=== PATIENT | female | born 1950 | race Caucasian/White ===

== ENCOUNTER 2018-12-28 09:30 | Emergency (ER) | payer BC, MEDICARE ==
--- NOTE | 2018-12-28 11:11 | EDM.PDOC ---
ED HPI GENERAL MEDICAL PROBLEM - General Chief Complaint: Bite:Animal, Insect Stated Complaint: TICK BITE FEVER CHILLS Time Seen by Provider: 12/28/18 10:00 Source of Information: Reports: Patient History Limitations: Reports: No Limitations - History of Present Illness INITIAL COMMENTS - FREE TEXT/NARRATIVE: Healthy 68 yo presents with concerns of possible lyme infection Pulled deer tick off back about 7 days ago. Did note surrounding erythema that has since resolved. Yesterday began having fever, headache, fatigue. Didn't take fever at home. No cough, N/A, diarrhea or abdominal pain. No prior hx of lyme Generalized Pain Score (Numeric/FACES): 7 - Related Data Allergies Allergy/AdvReac Type Severity Reaction Status Date / Time No Known Allergies Allergy Verified 10/21/17 06:53 Home Meds: Home Meds Donepezil HCl [Aricept] 5 mg PO BEDTIME 10/21/17 [History] Melatonin [Melatin] 3 mg PO BEDTIME 10/21/17 [History] Doxycycline [Vibramycin] 100 mg PO BID 21 Days cap 12/28/18 [Rx] Past Medical History - Past Health History Medical/Surgical History: Denies Medical/Surgical History - Infectious Disease History Infectious Disease History: Reports: Chicken Pox Social & Family History - Tobacco Use Smoking Status *Q: Never Smoker - Caffeine Use Caffeine Use: Reports: Coffee, Tea - Alcohol Use Days Per Week of Alcohol Use: 7 Number of Drinks Per Day: 1 Total Drinks Per Week: 7 - Recreational Drug Use Recreational Drug Use: No ED ROS GENERAL - Review of Systems Review Of Systems: See Below Constitutional: Reports: Fever, Chills, Malaise HEENT: Reports: No Symptoms Respiratory: Denies: Shortness of Breath, Cough Cardiovascular: Denies: Chest Pain Endocrine: Reports: No Symptoms GI/Abdominal: Reports: No Symptoms. Denies: Abdominal Pain Musculoskeletal: Reports: No Symptoms Neurological: Reports: Headache Psychiatric: Reports: No Symptoms Hematologic/Lymphatic: Reports: No Symptoms ED EXAM, ANIMAL BITE - Physical Exam Exam: See Below Exam Limited By: No Limitations General Appearance: Alert, No Apparent Distress Ears: Normal External Exam Nose: Normal Inspection Throat/Mouth: Normal Inspection Head: Atraumatic, Normocephalic Neck: Full Range of Motion Respiratory/Chest: No Respiratory Distress, Lungs Clear, Normal Breath Sounds Cardiovascular: Regular Rate, Rhythm GI/Abdominal: Soft, Non-Tender Back Exam: Normal Inspection Extremities: Normal Inspection Neurological: Alert, Oriented, CN II-XII Intact, No Motor/Sensory Deficits Psychiatric: Normal Affect, Normal Mood Skin Exam: Warm/Dry Course - Vital Signs Last Recorded V/S: Last Vital Signs Temp 39.4 C H 12/28/18 09:58 Pulse 84 12/28/18 09:58 Resp 16 12/28/18 09:58 BP 132/92 H 12/28/18 09:58 Pulse Ox 96 12/28/18 09:58 - Orders/Labs/Meds Orders: Active Orders 24 hr Category Date Time Status LYME, TOTAL AB TEST/REFLEX Stat Lab 12/28/18 10:28 Received Labs: Laboratory Tests 12/28/18 12/28/18 Range/Units 10:15 10:28 WBC 4.0 L (4.5-11.0) K/uL RBC 4.74 (3.30-5.50) M/uL Hgb 14.6 (12.0-15.0) g/dL Hct 43.8 (36.0-48.0) % MCV 92 (80-98) fL MCH 31 (27-31) pg MCHC 33 (32-36) % Plt Count 210 (150-400) K/uL Sodium 132 L (140-148) mmol/L Potassium 3.8 (3.6-5.2) mmol/L Chloride 95 L (100-108) mmol/L Carbon Dioxide 27 (21-32) mmol/L Anion Gap 13.8 (5.0-14.0) mmol/L BUN 14 (7-18) mg/dL Creatinine 0.8 (0.6-1.0) mg/dL Est Cr Clr Drug Dosing 56.45 mL/min Estimated GFR (MDRD) > 60 (>60) Glucose 112 H (74-106) mg/dL Calcium 9.3 (8.5-10.1) mg/dL Total Bilirubin 0.6 (0.2-1.0) mg/dL AST 36 (15-37) U/L ALT 32 (12-78) U/L Alkaline Phosphatase 89 (46-116) U/L Total Protein 8.4 H (6.4-8.2) g/dL Albumin 4.3 (3.4-5.0) g/dL Globulin 4.1 H (2.3-3.5) g/dL Albumin/Globulin Ratio 1.1 L (1.2-2.2) - Re-Assessments/Exams Free Text/Narrative Re-Assessment/Exam: 68 yo presents with concerns of fever, fatigue, headache in setting of recent deer tick bite and rash concerning for erythema migrans Labs non-contributory Alternatively could represent viral illness, but history concerning for lyme so will start doxycycline. Low concern for occult bacterial infection. Lyme serology sent. Discussed return precaution, symptomatic cares Discharged 12/28/18 11:34 Departure - Departure Time of Disposition: 11:10 Disposition: Home, Self-Care 01 Clinical Impression: Tick bite Qualifiers: Encounter type: initial encounter Qualified Code(s): W57.XXXA - Bitten or stung by nonvenomous insect and other nonvenomous arthropods, initial encounter - Discharge Information Prescriptions: Doxycycline [Vibramycin] 100 mg PO BID 21 Days cap Instructions: Tick Bite Information, Adult, [id number] Referrals: PCP,None [Primary Care Provider] - Forms: ED Department Discharge Additional Instructions: Please take the prescribed antibiotics, there should be extra pills to have on hand for future tick bites as discussed. We will call for positive flu test Follow up with your primary doctor as needed - My Orders Last 24 Hours: My Active Orders 12/28/18 10:28 LYME, TOTAL AB TEST/REFLEX Stat - Assessment/Plan Last 24 Hours: My Active Orders 12/28/18 10:28 LYME, TOTAL AB TEST/REFLEX Stat
[2018-12-31 11:09] LABS: LYME IGG/IGM AB <0.91 ISR (0.00-0.90)
== END 2018-12-28 11:23 | disposition home or self-care (01) ==
LOC: JP.ED 09:30
DX: S20.469A Insect bite (nonvenomous) of unspecified back wall of thorax, initial encounter (principal); W57.XXXA Bitten or stung by nonvenomous insect and other nonvenomous arthropods, initial encounter
CPT/HCPCS: 36415; 80053; 85027; 86618; 87804; 87804-59; 99283; 99284

== ENCOUNTER 2019-09-14 11:47 | Emergency (ER) | payer MEDICARE ==
--- NOTE | 2019-09-14 13:25 | CT ---
Head wo Cont CLINICAL HISTORY: TIA COMPARISON: MR brain 2018 TECHNIQUE: Transverse scans were obtained from the base of the skull through the vertex without IV contrast on a multislice, multidetector CT scanner. Auto dosage reduction and iterative reconstruction techniques employed. FINDINGS: There is a rounded 8 mm density. There is no mass effect, hemorrhage, or extraaxial collection. There are some mild scattered periventricular and subcortical lucency The basal cisterns and sulci over the convexities are prominent. The ventricles are normal for age. IMPRESSION: Left periventricular frontal low-attenuation focus measuring approximately 8 mm. This is poorly marginated. Small ischemic infarct is not excluded. If clinically relevant to noncontrast MR brain is a consideration
--- NOTE | 2019-09-14 13:36 | EDM.PDOC ---
ED HPI GENERAL MEDICAL PROBLEM - General Chief Complaint: Eye Problems Stated Complaint: WAVEY FEELING IN THE EYES Time Seen by Provider: 09/14/19 13:32 Source of Information: Reports: Patient - History of Present Illness INITIAL COMMENTS - FREE TEXT/NARRATIVE: 69 year old female presents to [place] [facility] for evaluation of visual disturbances which have been intermittent. CT Head and Visual Acuity order shortly after arrival due to concern regarding Stroke or TIA. Patient has had recurrent visual disturbances intermittently but increased frequency this week. Patient describes visual disturbance and waxes involving both eyes rainbow upper and lower visual field with clear central vision noted. Visual disturbance last 2-5 minutes with occurrence every few weeks to months except just happed a few days ago and today. Patient was sitting at the dining room table attempting to read when she noticed visual concerns which lasted a few minutes. Patient has noted pressure irregularities in different spots on her head which seem to be transient. Patient reports fairly significant memory concerns which have been noticed by family. Patient does not have a regular PCP in the [facility] but live in [facility]. Patient was told that she had electrolyte abnormality recently but does not recall what maybe magnesium. Patient is ok with work-up today and discussed referral for TIA,Stroke vs Neurology consultation today or in the near future. 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 ED EXAM GENERAL W FULL EYE - Physical Exam Exam: See Below Exam Limited By: No Limitations General Appearance: Alert, WD/WN, No Apparent Distress Eye Exam: Bilateral Eye: EOMI, Normal Inspection Visual Acuity (R) 20/: 30 Visual Acuity (L) 20/: 25 With Correction: Yes Eyelids: Bilateral: Normal Appearance Conjunctiva & Sclera: Bilateral: Normal Appearance Extraocular Movements: Bilateral: Intact Ears: Normal External Exam, Hearing Grossly Normal Nose: Normal Inspection Throat/Mouth: Normal Inspection, Normal Voice, No Airway Compromise Neck: Normal Inspection, Supple, Non-Tender, Full Range of Motion Neurological: Alert, Oriented, CN II-XII Intact, Normal Cognition, Normal Gait, Normal Reflexes, No Motor/Sensory Deficits Psychiatric: Normal Affect, Normal Mood Skin Exam: Warm, Dry, Intact, Normal Color, No Rash EKG INTERPRETATION EKG Date: 09/14/19 Time: 14:02 Rhythm: NSR Rate (Beats/Min): 62 [place]: Normal P-Wave: Variable (biphasic V1-V3 with enlarged wave on LEAD II, III and aVF) QRS: Normal ST-T: Other (non-specific change (flipped T in V1)) QT: Normal ED EYE w/ Add Procedure - Additional/Other Procedure(s) Other (Free Text) Procedure(s) [Text1]: Visual Acuity: Rt 20/30 Left 20/25 with correction Course - Vital Signs Last Recorded V/S: Last Vital Signs Temp 36.4 C 09/14/19 13:25 Pulse 67 09/14/19 15:54 Resp 16 09/14/19 15:54 BP 129/79 09/14/19 15:54 Pulse Ox 98 09/14/19 15:54 - Orders/Labs/Meds Orders: Active Orders 24 hr Category Date Time Status Assess Neurological Status [RC] CONTINUOUS Care 09/14/19 13:53 Active EKG Documentation Completion [RC] ASDIRECTED Care 09/14/19 13:54 Active NIH Stroke Scale [RC] Q15M Care 09/14/19 13:53 Active Nursing Bedside Swallow Screen [RC] STAT Care 09/14/19 13:53 Active Oxygen Therapy, ED [RC] ASDIRECTED Care 09/14/19 13:53 Active Peripheral IV Care [RC] . DIRECTED Care 09/14/19 13:53 Active Peripheral IV Care [RC] . DIRECTED Care 09/14/19 13:54 Active Visual Acuity [Vision Test] [RC] ASDIRECTED Care 09/14/19 12:19 Active Vital Signs [RC] Q15M Care 09/14/19 13:53 Active Ang Neck [CT] Stat Exams 09/14/19 15:55 Taken Iopamidol [Isovue-370 (76%)] Med 09/14/19 16:15 Active 100 ml IV . DIRECTED Sodium Chloride 0.9% [Normal Saline] 100 ml Med 09/14/19 16:15 Active IV ASDIRECTED Sodium Chloride 0.9% [Saline Flush] Med 09/14/19 13:53 Active 10 ml FLUSH ASDIRECTED PRN Sodium Chloride 0.9% [Saline Flush] Med 09/14/19 13:53 Active 10 ml FLUSH ASDIRECTED PRN Peripheral IV Insertion Adult [OM.PC] Stat Oth 09/14/19 13:53 Ordered Peripheral IV Insertion Adult [OM.PC] Urgent Oth 09/14/19 13:52 Ordered EKG 12 Lead [EK] Stat Ther 09/14/19 13:53 Ordered Medication Orders Sodium Chloride (Normal Saline) 100 mls @ 3 mls/sec IV ASDIRECTED GRIS Stop: 09/14/19 18:00 Last Admin: 09/14/19 16:34 Dose: 3 mls/sec Documented by: BLUE Iopamidol (Isovue-370 (76%)) 100 ml IV . DIRECTED GRIS Stop: 09/14/19 18:00 Last Admin: 09/14/19 16:33 Dose: 100 ml Documented by: BLUE Sodium Chloride (Saline Flush) 10 ml FLUSH ASDIRECTED PRN PRN Reason: Keep Vein Open Last Admin: 09/14/19 16:49 Dose: 10 ml Documented by: KARIE Sodium Chloride (Saline Flush) 10 ml FLUSH ASDIRECTED PRN PRN Reason: Keep Vein Open Last Admin: 09/14/19 16:50 Dose: 10 ml Documented by: KARIE Labs: Laboratory Tests 09/14/19 09/14/19 09/14/19 Range/Units 14:08 14:08 14:08 WBC (4.5-11.0) K/uL RBC (3.30-5.50) M/uL Hgb (12.0-15.0) g/dL Hct (36.0-48.0) % MCV (80-98) fL MCH (27-31) pg MCHC (32-36) % Plt Count (150-400) K/uL Neut % (Auto) (36-66) % Lymph % (Auto) (24-44) % [place] % (Auto) (2-6) % Eos % (Auto) (2-4) % Baso % (Auto) (0-1) % PT 10.6 (9.5-12.0) sec INR 0.98 (0.80-1.20) APTT 26.9 L (27.0-36.0) sec Sodium 139 L (140-148) mmol/L Potassium 4.4 (3.6-5.2) mmol/L Chloride 103 (100-108) mmol/L Carbon Dioxide 28 (21-32) mmol/L Anion Gap 12.4 (5.0-14.0) mmol/L BUN 8 (7-18) mg/dL Creatinine 0.7 (0.6-1.0) mg/dL Est Cr Clr Drug Dosing 60.84 mL/min Estimated GFR (MDRD) > 60 (>60) Glucose 97 (74-106) mg/dL Calcium 9.1 (8.5-10.1) mg/dL Magnesium 2.2 (1.8-2.4) mg/dL Total Bilirubin 0.4 (0.2-1.0) mg/dL AST 23 (15-37) U/L ALT 29 (12-78) U/L Alkaline Phosphatase 75 (46-116) U/L Creatine Kinase 126 (26-192) U/L Total Protein 7.6 (6.4-8.2) g/dL Albumin 4.1 (3.4-5.0) g/dL Globulin 3.5 (2.3-3.5) g/dL Albumin/Globulin Ratio 1.2 (1.2-2.2) / Range/Units 16:29 WBC 6.2 (4.5-11.0) K/uL RBC 4.15 (3.30-5.50) M/uL Hgb 12.8 (12.0-15.0) g/dL Hct 39.5 (36.0-48.0) % MCV 95 (80-98) fL MCH 31 (27-31) pg MCHC 32 (32-36) % Plt Count 292 (150-400) K/uL Neut % (Auto) 55 (36-66) % Lymph % (Auto) 36 (24-44) % [place] % (Auto) 7 H (2-6) % Eos % (Auto) 1 L (2-4) % Baso % (Auto) 1 (0-1) % PT (9.5-12.0) sec INR (0.80-1.20) APTT (27.0-36.0) sec Sodium (140-148) mmol/L Potassium (3.6-5.2) mmol/L Chloride (100-108) mmol/L Carbon Dioxide (21-32) mmol/L Anion Gap (5.0-14.0) mmol/L BUN (7-18) mg/dL Creatinine (0.6-1.0) mg/dL Est Cr Clr Drug Dosing mL/min Estimated GFR (MDRD) (>60) Glucose (74-106) mg/dL Calcium (8.5-10.1) mg/dL Magnesium (1.8-2.4) mg/dL Total Bilirubin (0.2-1.0) mg/dL AST (15-37) U/L ALT (12-78) U/L Alkaline Phosphatase (46-116) U/L Creatine Kinase (26-192) U/L Total Protein (6.4-8.2) g/dL Albumin (3.4-5.0) g/dL Globulin (2.3-3.5) g/dL Albumin/Globulin Ratio (1.2-2.2) Meds: Medications Generic Name Dose Route Start Last Admin Trade Name Freq PRN Reason Stop Dose Admin Sodium Chloride 100 mls @ 3 mls/sec 09/14/19 16:15 09/14/19 16:34 Normal Saline IV 09/14/19 18:00 3 mls/sec ASDIRECTED GRIS Administration Iopamidol 100 ml 09/14/19 16:15 09/14/19 16:33 Isovue-370 (76%) IV 09/14/19 18:00 100 ml . DIRECTED GRIS Administration Sodium Chloride 10 ml 09/14/19 13:53 09/14/19 16:49 Saline Flush FLUSH 10 ml ASDIRECTED PRN Administration Keep Vein Open Sodium Chloride 10 ml 09/14/19 13:53 09/14/19 16:50 Saline Flush FLUSH 10 ml ASDIRECTED PRN Administration Keep Vein Open Discontinued Medications Generic Name Dose Route Start Last Admin Trade Name Abigail PRN Reason Stop Dose Admin Aspirin 324 mg 09/14/19 13:53 09/14/19 14:28 Aspirin PO 09/14/19 13:54 324 mg ONETIME ONE Administration Sodium Chloride 10 ml 09/14/19 16:02 09/14/19 16:34 Saline Flush FLUSH 09/14/19 16:03 10 ml ONETIME ONE Administration - Radiology Interpretation Free Text/Narrative:: Preliminary Radiology report available at 17:31 CTA Head: No large lessel occlusion. Major intracranial arteries are patent. CTA Neck: No significant stenosis of the major cervical arteries. No evidence of cervical arterial dissection. - Re-Assessments/Exams Free Text/Narrative Re-Assessment/Exam: Radiology Report regarding CT Head reviewed and discussed with ER MD regarding MRI availability and TIA/Stroke referral center. Orders for further work-up placed. Discussed results with patient: Left periventricular frontal low- attenuation focus measuring approximately 8mm. This is poorly marginated. Small Ischemic Infarct is not excluded. Patient consents to proceed with further evaluation including blood work, MRI/MRA, EKG and Aspirin dosing. 09/14/19 13:50 MRI not available at this time. Patient updated regarding EKG and blood test results which appear normal. [facility] regarding outpatient TIA work-up. Stroke Neurologist, Dr Spears recommended CTA Head and Neck today before safe to discharge today. We will work out outpatient evaluation with Cardiac Echo/Carotid US and General Neurology evaluation later this week. 09/14/19 15:56 Called [facility] Source to update Dr Spears regarding CTA Head and Neck results. 09/14/19 17:37 Departure - Departure Time of Disposition: 17:59 Disposition: Home, Self-Care 01 Clinical Impression: Visual disturbance, TIA (transient ischemic attack) - Discharge Information Referrals: PCP,None [Primary Care Provider] - Forms: ED Department Discharge Additional Instructions: 1. Start Aspirin 325mg daily for possible TIA visual concerns. 2. Follow-up at [facility] with Stroke Interventionalist for further work- up for TIA. 3. Stroke Neurologist recommends consultation with General Neurologist with possible MRI for further neurologic work-up. 4. Call [facility] at 8 am to ensure complete referral to [facility] Stroke clinic this week and General Neurologist with possible outpatient MRI. 5. We will follow-up with clinic tomorrow to ensure you are contacted. Please call ER [phone] if you have not received a phone call from [facility] by noon tomorrow. Sepsis Event Note (ED) - Evaluation Sepsis Screening Result: No Definite Risk - Focused Exam Vital Signs: Vital Signs Temp Pulse Resp BP Pulse Ox 09/14/19 15:54 67 16 129/79 98 09/14/19 14:31 57 L 18 152/87 H 98 09/14/19 13:25 36.4 C 55 L 16 146/83 H 94 L 09/14/19 12:57 36.4 C 55 L 16 146/83 H 97 - My Orders Last 24 Hours: My Active Orders 09/14/19 12:19 Visual Acuity [Vision Test] [RC] ASDIRECTED 09/14/19 13:52 Peripheral IV Insertion Adult [OM.PC] Urgent 09/14/19 13:53 Assess Neurological Status [RC] CONTINUOUS NIH Stroke Scale [RC] Q15M Nursing Bedside Swallow Screen [RC] STAT Oxygen Therapy, ED [RC] ASDIRECTED Peripheral IV Care [RC] . DIRECTED Vital Signs [RC] Q15M Sodium Chloride 0.9% [Saline Flush] 10 ml FLUSH ASDIRECTED PRN Sodium Chloride 0.9% [Saline Flush] 10 ml FLUSH ASDIRECTED PRN Peripheral IV Insertion Adult [OM.PC] Stat EKG 12 Lead [EK] Stat 09/14/19 13:54 EKG Documentation Completion [RC] ASDIRECTED Peripheral IV Care [RC] . DIRECTED 09/14/19 15:55 Ang Neck [CT] Stat 09/14/19 16:15 Iopamidol [Isovue-370 (76%)] 100 ml IV . DIRECTED Sodium Chloride 0.9% [Normal Saline] 100 ml IV ASDIRECTED - Assessment/Plan Last 24 Hours: My Active Orders 09/14/19 12:19 Visual Acuity [Vision Test] [RC] ASDIRECTED 09/14/19 13:52 Peripheral IV Insertion Adult [OM.PC] Urgent 09/14/19 13:53 Assess Neurological Status [RC] CONTINUOUS NIH Stroke Scale [RC] Q15M Nursing Bedside Swallow Screen [RC] STAT Oxygen Therapy, ED [RC] ASDIRECTED Peripheral IV Care [RC] . DIRECTED Vital Signs [RC] Q15M Sodium Chloride 0.9% [Saline Flush] 10 ml FLUSH ASDIRECTED PRN Sodium Chloride 0.9% [Saline Flush] 10 ml FLUSH ASDIRECTED PRN Peripheral IV Insertion Adult [OM.PC] Stat EKG 12 Lead [EK] Stat 09/14/19 13:54 EKG Documentation Completion [RC] ASDIRECTED Peripheral IV Care [RC] . DIRECTED 09/14/19 15:55 Ang Neck [CT] Stat 09/14/19 16:15 Iopamidol [Isovue-370 (76%)] 100 ml IV . DIRECTED Sodium Chloride 0.9% [Normal Saline] 100 ml IV ASDIRECTED
[2019-09-14] MEDS ORDERED: Sodium Chloride 0.9% 10 ML Syringe FLUSH PRN ×2 (13:53)
[2019-09-14] MEDS ORDERED: Aspirin 81 MG Tab.Chew PO ONE (13:53)
[2019-09-14] MEDS ORDERED: Sodium Chloride 0.9% 10 ML Syringe FLUSH ONE (16:02)
[2019-09-14] MEDS ORDERED: Sodium Chloride 0.9% 100 ML IV SCH (16:15)
[2019-09-14] MEDS ORDERED: Iopamidol 755 Mg/ML 100 ML Bottle IV SCH (16:15)
--- NOTE | 2019-09-14 17:32 | CRLCT ---
INDICATION: Transient ischemic attack. TECHNIQUE: After standard noncontrast head CT, high resolution axial CT images acquired through the head and neck following rapid intravenous administration of iodinated contrast. Multiplanar MIPS of cranial and cervical vasculature performed. FINDINGS: Noncontrast head CT: There is no intracranial hemorrhage or fluid collection. The lane-white matter differentiation is maintained. There are subtle nonspecific white matter hypodensities commonly seen with cerebral small vessel disease. The ventricles are of normal morphology. The basal cisterns are clear. CTA head: There is normal filling of the intracranial vasculature; i.e. there is no large vessel occlusion or significant intracranial stenosis. There is no cerebral aneurysm or evidence for vascular malformation. CTA neck: There is no significant carotid or vertebral artery stenosis or dissection. The soft tissues of the neck are within normal limits. The cervical spine is in normal alignment. Degenerative changes are noted in the cervical spine. The lung apices are clear. IMPRESSION: No acute intracranial abnormality at CT/CTA. No significant carotid or vertebral artery stenosis or dissection. Ricky Cisse MD Neurointerventional Radiologist [employer] Please note that all CT scans at this facility use dose modulation, iterative reconstruction, and/or weight-based dosing when appropriate to reduce radiation dose to as low as reasonably achievable. Dictated by Ricky Cisse MD @ Sep 15 2019 9:23AM Signed by Dr. Ricky Cisse @ Sep 15 2019 9:23AM
--- NOTE | 2019-09-15 11:48 | CRLCT ---
Final Report: INDICATION: Transient ischemic attack. TECHNIQUE: After standard noncontrast head CT, high resolution axial CT images acquired through the head and neck following rapid intravenous administration of iodinated contrast. Multiplanar MIPS of cranial and cervical vasculature performed. FINDINGS: Noncontrast head CT: There is no intracranial hemorrhage or fluid collection. The lane-white matter differentiation is maintained. There are subtle nonspecific white matter hypodensities commonly seen with cerebral small vessel disease. The ventricles are of normal morphology. The basal cisterns are clear. CTA head: There is normal filling of the intracranial vasculature; i.e. there is no large vessel occlusion or significant intracranial stenosis. There is no cerebral aneurysm or evidence for vascular malformation. CTA neck: There is no significant carotid or vertebral artery stenosis or dissection. The soft tissues of the neck are within normal limits. The cervical spine is in normal alignment. Degenerative changes are noted in the cervical spine. The lung apices are clear. IMPRESSION: No acute intracranial abnormality at CT/CTA. No significant carotid or vertebral artery stenosis or dissection. Ricky Cisse MD Neurointerventional Radiologist [employer] Please note that all CT scans at this facility use dose modulation, iterative reconstruction, and/or weight-based dosing when appropriate to reduce radiation dose to as low as reasonably achievable. Dictated by Ricky Cisse MD @ Sep 15 2019 9:23AM Signed by: Ricky Cisse MD @09/15/2019 9:23:16 AM (Electronic Signature) [email or web address]
== END 2019-09-14 18:10 | disposition home or self-care (01) ==
LOC: JP.ED 11:47
DX: G45.9 Transient cerebral ischemic attack, unspecified (principal); M19.90 Unspecified osteoarthritis, unspecified site
CPT/HCPCS: 36415; 70450; 70496; 70498; 80053; 82550; 83735; 85025; 85610; 85730; 93005; 93010; 99284; A9270; J7050; Q9967

== ENCOUNTER 2021-03-30 11:21 | Emergency (ER) | payer MEDICARE ==
--- NOTE | 2021-03-30 11:59 | EDM.PDOC ---
ED HPI GENERAL MEDICAL PROBLEM - General Chief Complaint: Neurological Problem Stated Complaint: DIZZINESS,CONFUSED,SLURRED SPEECH Time Seen by Provider: 03/30/21 11:25 Source of Information: Reports: Patient, Family History Limitations: Reports: No Limitations - History of Present Illness INITIAL COMMENTS - FREE TEXT/NARRATIVE: 70-year-old female who has been having some issues with memory loss, mild intermittent confusion who developed a fairly sudden onset of confusion and expressive aphasia this morning causing her to be concerned. She also had some significant dizziness. He brought her in to be seen because she was very anxious, she has no physical deficits, is walking normally and has no weakness. No chest pain, shortness of breath, palpitations, nausea or vomiting, visual defects or other complaints. She seems anxious. Onset: Sudden Duration: Minutes: (Onset 30 to 40 minutes ago) Improves with: Reports: Other (Seems to be improving with some mild reassurance) Associated Symptoms: Reports: Confusion, Other (Dizziness) - Related Data Allergies Allergy/AdvReac Type Severity Reaction Status Date / Time No Known Allergies Allergy Verified 03/30/21 11:35 Home Meds: Home Meds Ascorbic Acid [Vitamin C] 500 mg PO DAILY 09/14/19 [History] Cyanocobalamin (Vitamin B-12) [Vitamin B-12] 1,000 mcg PO DAILY 09/14/19 [History] Multivitamin [Multivitamins] 1 each PO DAILY 09/14/19 [History] Past Medical History - Past Health History Medical/Surgical History: Denies Medical/Surgical History Other Cardiovascular History: rheumatic fever as a child. palpitations Respiratory History: Reports: None Gastrointestinal History: Reports: GERD Genitourinary History: Reports: None [employer] History: Reports: Other [employer] History: abortions x2 Musculoskeletal History: Reports: Arthritis Other Musculoskeletal History: arthritis right index finger Neurological History: Reports: Other (See Below) Other Neuro History: visual migraines Psychiatric History: Reports: None Endocrine/Metabolic History: Reports: None Hematologic History: Reports: None Immunologic History: Reports: None Oncologic (Cancer) History: Reports: None Dermatologic History: Reports: None - Infectious Disease History Infectious Disease History: Reports: Chicken Pox, Rheumatic Fever - Past Surgical History HEENT Surgical History: Reports: Oral Surgery, Tonsillectomy Social & Family History - Caffeine Use Caffeine Use: Reports: Coffee ED ROS GENERAL - Review of Systems Review Of Systems: See Below Constitutional: Denies: Fever, Chills, Malaise HEENT: Denies: Vision Change Respiratory: Denies: Shortness of Breath Cardiovascular: Reports: Palpitations. Denies: Chest Pain GI/Abdominal: Denies: Abdominal Pain, Nausea, Vomiting Skin: Reports: No Symptoms Neurological: Reports: Dizziness, Trouble Speaking. Denies: Headache, Paresthesia Psychiatric: Reports: Anxiety ED EXAM, GENERAL - Physical Exam Exam: See Below Exam Limited By: No Limitations General Appearance: Alert, No Apparent Distress Eye Exam: Bilateral Eye: Normal Inspection Head: Atraumatic Neck: Supple, Non-Tender Respiratory/Chest: Lungs Clear Cardiovascular: Regular Rate, Rhythm GI/Abdominal: Soft, Non-Tender Neurological: Alert, Oriented, Other (Patient does display some mild confusion and is very anxious, mild dysarthria and expressive aphasia which seems to be waxing and waning) Psychiatric: Anxious Skin Exam: Warm, Dry Course - Vital Signs Last Recorded V/S: Last Vital Signs Temp 98.4 F 03/30/21 11:29 Pulse 72 03/30/21 12:30 Resp 16 03/30/21 11:29 BP 159/90 H 03/30/21 12:30 Pulse Ox 97 03/30/21 11:29 - Orders/Labs/Meds Labs: Laboratory Tests 03/30/21 03/30/21 03/30/21 Range/Units 11:43 11:43 11:43 WBC 6.8 (4.5-11.0) K/uL RBC 4.38 (3.30-5.50) M/uL Hgb 13.5 (12.0-15.0) g/dL Hct 39.5 (36.0-48.0) % MCV 90 (80-98) fL MCH 31 (27-31) pg MCHC 34 (32-36) % Plt Count 213 (150-400) K/uL Neut % (Auto) 42.8 (36-66) % Lymph % (Auto) 47.6 H (24-44) % Coal % (Auto) 7.7 H (2-6) % Eos % (Auto) 0.9 L (2-4) % Baso % (Auto) 0.7 (0-1) % Sodium 134 L (140-148) mmol/L Potassium 3.7 (3.6-5.2) mmol/L Chloride 100 (100-108) mmol/L Carbon Dioxide 25 (21-32) mmol/L Anion Gap 12.7 (5.0-14.0) mmol/L BUN 11 (7-18) mg/dL Creatinine 0.7 (0.6-1.0) mg/dL Est Cr Clr Drug Dosing 59.99 mL/min Estimated GFR (MDRD) > 60 (>60) Glucose 132 H (74-106) mg/dL Calcium 9.2 (8.5-10.1) mg/dL Total Bilirubin 0.3 (0.2-1.0) mg/dL AST 23 (15-37) U/L ALT 21 (12-78) U/L Alkaline Phosphatase 74 (46-116) U/L Troponin I High Sens 5.9 (<=60.3) pg/mL Total Protein 7.4 (6.4-8.2) g/dL Albumin 3.8 (3.4-5.0) g/dL Globulin 3.6 H (2.3-3.5) g/dL Albumin/Globulin Ratio 1.1 L (1.2-2.2) TSH, Ultra Sensitive 0.359 (0.358-3.740) uIU/mL - Re-Assessments/Exams Free Text/Narrative Re-Assessment/Exam: 03/30/21 11:49 This appears to be more anxiety related but a CT of the head without contrast was ordered, along with a CBC CMP and TSH. I reviewed her clinic records and she has developed some ongoing anxiety about palpitations and has had cardiac consultations. 03/30/21 12:44 After further discussion with the apparently she has also been to [place] for neurology consultation because of some visual issues and had a recent MRI of her head which was reassuring. The CT also looked negative other than a slight change of a chronic finding, CBC CMP and TSH were normal. Patient will be discharged with a diagnosis of intermittent dizziness, anxiety. 03/30/21 14:05 Patient was at her baseline when discharged, if symptoms recur and are persistent more evaluation of the subtle change in CT scan or comparing it to her recent MRI would be worthwhile. 03/31/21 11:05 Phone call to the patient today, 12 hours after being seen and according to the she was back to her baseline after she left the emergency room and has been doing fine. Departure - Departure Time of Disposition: 13:07 Disposition: Home, Self-Care 01 Clinical Impression: Dizziness - Discharge Information Instructions: Dizziness, [id number] Referrals: PCP,None [Primary Care Provider] - Forms: ED Department Discharge Care Plan Goals: Stay hydrated, activity as tolerated, and return anytime if you develop persistent symptoms that are concerning and you feel you need further evaluation. Sepsis Event Note (ED) - Evaluation Sepsis Screening Result: No Definite Risk
--- NOTE | 2021-03-30 13:12 | CT ---
Head wo Cont CLINICAL HISTORY: Confusion, mild dysarthria COMPARISON: 2019 TECHNIQUE: Transverse scans were obtained from the base of the skull through the vertex without IV contrast on a multislice, multidetector CT scanner. Auto dosage reduction and iterative reconstruction techniques employed. FINDINGS: There is focal ill-defined low-attenuation contiguous to the left frontal horn. This was seen on the August 2019 study. It is slightly larger and less well-defined. There is no mass effect, hemorrhage, or extraaxial collection. The basal cisterns and sulci over the convexities are mildly prominent. The ventricles are normal for age. IMPRESSION: Ill-defined hypodense area contiguous to the left frontal horn. It is slightly larger and less well-defined than in August 2019. This may represent an area of the acute ischemic infarct. This could represent some chronic ischemic microvascular change. No mass effect or hemorrhage
== END 2021-03-30 13:07 | disposition home or self-care (01) ==
LOC: JP.ED 11:21
DX: R42 Dizziness and giddiness (principal); K21.9 Gastro-esophageal reflux disease without esophagitis
CPT/HCPCS: 36415; 70450; 70450-26; 80053; 84443; 84484; 85025; 99284-25

== ENCOUNTER 2021-05-14 13:18 | Emergency (ER) | payer MEDICARE | END 2021-05-14 15:01 | disposition left against medical advice (07) | LOC: JP.ED 13:18 | DX: R07.9 Chest pain, unspecified (principal); K21.9 Gastro-esophageal reflux disease without esophagitis; M19.90 Unspecified osteoarthritis, unspecified site; Z53.8 Procedure and treatment not carried out for other reasons | CPT/HCPCS: 93005; 99282; 99284-25 ==

== ENCOUNTER 2022-03-04 10:20 | Emergency (ER) | payer MEDICARE | END 2022-03-04 11:45 | disposition home or self-care (01) | LOC: JP.ED 10:20 | DX: S40.011A Contusion of right shoulder, initial encounter (principal); Z79.899 Other long term (current) drug therapy; W10.9XXA Fall (on) (from) unspecified stairs and steps, initial encounter | CPT/HCPCS: 73030-26-RT; 73030-RT; 99283 ==

== ENCOUNTER 2022-08-29 22:34 | Emergency (ER) | payer MEDICARE ==
[2022-08-29 23:31] LABS: APPEARANCE,URINE CLEAR (CLEAR); BILIRUBIN,URINE NEGATIVE (NEGATIVE); COLOR,URINE YELLOW (YELLOW); GLUCOSE,URINE NEGATIVE (NEGATIVE); KETONES,URINE NEGATIVE (NEGATIVE); LEUKOCYTE ESTERASE,URINE SMALL (NEGATIVE); NITRITE,URINE NEGATIVE (NEGATIVE); OCCULT BLOOD,URINE TRACE-INTACT (NEGATIVE); PROTEIN,URINE NEGATIVE (NEGATIVE); UROBILINOGEN,URINE 0.2 EU/dL (0.2-1.0)
[2022-08-29 23:40] LABS: AMORPHOUS SEDIMENT,URINE NOT SEEN; BACTERIA,URINE FEW; EPITHELIAL CELLS,URINE RARE; MUCUS,URINE RARE; RBC,URINE 0-5 (0-5)
[2022-08-30] MEDS ORDERED: hydrOXYzine HCl 25 MG Tab PO ONE (00:01)
== END 2022-08-30 00:13 | disposition home or self-care (01) ==
LOC: JP.ED 22:34
DX: F41.9 Anxiety disorder, unspecified (principal); R82.71 Bacteriuria; R82.81 Pyuria; F03.90 Unspecified dementia, unspecified severity, without behavioral disturbance, psychotic disturbance, mood disturbance, and anxiety; F23 Brief psychotic disorder
CPT/HCPCS: 81001; 87086; 99284; A9270